=== PATIENT | male | born 1995 | race Caucasian/White ===

== ENCOUNTER 2022-05-13 10:43 | Emergency (ER) | payer SELFPAY ==
--- NOTE | ~2022-05-13 | XR_ITS ---
EXAMINATION: XR CHEST CLINICAL INFORMATION: Cough COMPARISON: None TECHNIQUE: Frontal view of the chest was obtained. FINDINGS: No significant abnormality is noted involving the heart, lungs, mediastinum, bony thorax or soft tissues. XR/XR chest 1V IMPRESSION: Unremarkable examination.
[2022-05-13 11:05] VITALS: BP 120/70; PULSE 68; RESP 18; TEMP 36.6; O2SAT 100; BMI 30.1
[2022-05-13 12:33] LABS: Influenza A PCR NEGATIVE (Negative); Influenza B PCR NEGATIVE (Negative); Resp Syncy Virus RNA Qual PCR NEGATIVE (Negative); SARS COV2 PCR INHOUSE NEGATIVE (Negative)
--- NOTE | 2022-05-13 12:56 | ED.GENADULT ---
HPI - General Adult General Chief complaint: General Medical Stated complaint: Coughing up blood/Sores in throat Time Seen by Provider: 05/13/22 11:20 History of Present Illness HPI narrative: Patient complains of body aches fatigue and cough for 5 days, the cough is productive of sputum and there is sometimes blood flecks in the sputum He has no shortness of breath no chest pain no abdominal pain no nausea vomiting or diarrhea Related Data Previous Rx's Medication Instructions Recorded benzonatate 100 mg capsule 100 mg PO BID PRN cough #14 caps 05/13/22 doxycycline hyclate 100 mg tablet 100 mg PO BID 5 days #10 tabs 05/13/22 Allergies Allergy/AdvReac Type Severity Reaction Status Date / Time No Known Allergies Allergy Verified 05/13/22 11:03 [facility] Past Medical History Source: nursing notes reviewed Social History Social History Advance Directives: No Advance Directives Information Provided: No Physical Exam ED Vital Signs: Vital Signs - 24 hr 05/13/22 11:05 Temperature 97.9 F Pulse Rate 68 Respiratory Rate 18 Blood Pressure 120/70 Pulse Oximetry 100 Oxygen Delivery Method Room Air BMI result Body Mass Index 30.1 General appearance no acute distress Eyes anicteric no pallor no redness no discharge Sinuses not tender The pharynx is clear no redness swelling or exudate membranes moist Neck is supple Chest clear to auscultation bilateral Heart no murmur Abdomen soft nontender Extremities full range of motion x4 Course Course Course Narrative: Patient with blood flecked sputum occasionally when he coughs but no chevy hemoptysis had negative COVID negative flu and chest x-ray was normal Has cough is progressing and productive of sputum and it is not improved in 5 days he is written for doxycycline antibiotic for bronchitis, he is otherwise well-appearing and comfortable and is discharged Medical Decision Making Lab Data Labs: Lab Results 05/13/22 Range/Units 11:36 Influenza Type A (PCR) NEGATIVE (Negative) Influenza Type B (PCR) NEGATIVE (Negative) RSV RNA Qual (PCR) NEGATIVE (Negative) SARS-CoV-2 RNA (RT-PCR) NEGATIVE (Negative) Discharge Plan Discharge Clinical Impression: Bronchitis Patient Disposition: Home, Self-Care Additional Instructions: COVID test was negative, flu test was negative, chest x-ray did not show an obvious pneumonia Blood flecks in sputum is very common with cough If bleeding worsens return for re-evaluation As cough has not improved in 5 days we will treat with bronchitis with antibiotic doxycycline Return any time for any worse condition or any concerns Prescriptions: New doxycycline hyclate 100 mg tablet 100 mg PO BID 5 Days Qty: 10 0RF benzonatate 100 mg capsule 100 mg PO BID PRN (Reason: cough) Qty: 14 0RF Stand Alone Forms: Work/School Release
== END 2022-05-13 13:10 | disposition home or self-care (01) ==
PROVIDERS: Emergency Provider Emergency Medicine
DX: J40 Bronchitis, not specified as acute or chronic (principal); Z20.822 Contact with and (suspected) exposure to COVID-19; Z20.828 Contact with and (suspected) exposure to other viral communicable diseases
CPT/HCPCS: 0241U; 71045; 99282; 99283